=== PATIENT | male | born 1995 ===

== ENCOUNTER 2023-11-05 10:59 | Emergency (ER) | payer OTHER, SELFPAY ==
[2023-11-05 11:01] VITALS: BP 164/89; PULSE 99; RESP 17; TEMP 36.6; O2SAT 98; BMI 35.6
--- NOTE | 2023-11-05 11:01 | ED_ITS ---
HPI - General Adult General Chief complaint: Wound/Laceration Stated complaint: surgery site infection Time Seen by Provider: 11/05/23 11:05 Source: patient and old records reviewed Mode of arrival: ambulatory Limitations: no limitations History of Present Illness ED Provider: Rosa Maria Tracy PA-C HPI narrative: 28 yo male who had recent pilonidal cyst resection at [facility] on 09/29 presents to the ER for evaluation of pain at the site that started yesterday. He states the area is warm and he is worried about another infection. He called his surgeon who advised him to come to the ER. He states he just returned back to work and was having pain with sitting and moving around yesterday. He denies any drainage from the area. No fevers. He does not know if the area is red. MD complaint: pilonidal cyst pain Onset (ago): day(s) (1) Location: buttocks Radiation: non-radiation Severity: moderate Severity scale (1-10): 5 Quality: aching Pain Consistency: intermittent Relieving factors: rest Exacerbating factors: other (sitting, lifting) Associated symptoms: denies other symptoms Treatments prior to arrival: none Related Data Previous Rx's ?Medication ?Instructions ?Recorded amoxicillin 875 mg-potassium 1 tab PO BID #14 tabs 11/05/23 clavulanate 125 mg tablet ibuprofen 600 mg tablet 600 mg PO Q8H PRN pain #14 tabs 11/05/23 Allergies Allergy/AdvReac Type Severity Reaction Status Date / Time ranitidine Allergy Itching Verified 11/05/23 11:06 Review of Systems Review of Systems: Yes all other systems are reviewed and are negative PMFSH Social History Social History Advance Directives: No Advance Directives Information Provided: Yes Do you have a plan to hurt others: No Plan Physical Exam ED Vital Signs: Vital Signs - 24 hr 11/05/23 11:01 11/05/23 11:10 Temperature 98 F 98 F Pulse Rate 99 99 Respiratory Rate 17 17 Blood Pressure 164/89 H 164/89 H Pulse Oximetry 98 98 Oxygen Delivery Method Room Air Room Air BMI result Body Mass Index 35.6 Appearance: Alert. Oriented X3. No acute distress. HEENT: normal inspection CVS: Normal heart rate and rhythm. Pulses normal. Respiratory: No respiratory distress. Skin: Skin warm and dry. Normal skin color. Normal skin turgor. No rashes. there is a well healed surgical site at the gluteal cleft without associated erythema or warmth. there is some fullness under the site without induration or fluctuation Extremities: normal inspection x4, no joint swelling Neuro: Oriented X 3. Grossly normal, nonfocal Medical Decision Making Medical Decision Making MDM Narrative: 28-year-old male with history of recent pilonidal cyst excision at [facility] in the beginning of September presents to the ER for evaluation of increasing pain and warmth to the area. No drainage, fevers, chills. Exam is consistent with an appropriately healing pilonidal cyst. No evidence of acute cellulitis or need for drainage today. He needs follow-up with his surgeon for re-evaluation. Will provide empiric antibiotics in the meantime. Work note provided per request. Stable for discharge home with outpatient follow-up. Return precautions were discussed. Differential Diagnosis Differential Diagnoses: The differential diagnosis associated with the presentation includes pilonidal cyst, abscess, cellulitis External Record Review External record reviewed: Outpatient record Prescription Management I considered prescription management with: Pain Medication and Antibiotic Critical Care Time Critical Care Time Critical Care Time: No Discharge Plan Discharge Clinical Impression: Pilonidal cyst Patient Disposition: Home, Self-Care Instructions: Pilonidal Cyst (ED) Additional Instructions: Take the prescribed antibiotics as directed, complete the entire course and do not miss any doses Follow up with your Surgeon at [facility] If you develop new or worsening symptoms call 911 or come back to the ER for further evaluation. Prescriptions: New amoxicillin-pot clavulanate 875-125 mg tablet 1 tab PO BID Qty: 14 0RF ibuprofen 600 mg tablet 600 mg PO Q8H PRN (Reason: pain) Qty: 14 0RF Stand Alone Forms: Work/School Release Interventions: ED Discharge Assessment Last Done: 11/05/23 11:10 Discharge Date/Time: 11/05/23 11:21 Print Language: Green[place]ic
[2023-11-05 11:10] VITALS: BP 164/89; PULSE 99; RESP 17; TEMP 36.6; O2SAT 98
== END 2023-11-05 11:21 | disposition home or self-care (01) ==
LOC: HO.ED 11:15
PROVIDERS: Emergency Provider Emergency Medicine
DX: L05.91 Pilonidal cyst without abscess (principal)
CPT/HCPCS: 99282; 99283